=== PATIENT | male | born 1935 | race Two or more races ===

== ENCOUNTER 2017-08-29 06:32 | Emergency (ER) | payer OTHER ==
[~2017-08-29] VITALS: Ht 167.6 cm; Wt 66.7 kg
[2017-08-29 06:35] VITALS: Ht 167.6 cm; Wt 66.7 kg
[2017-08-29 08:10] VITALS: BP 142/82
== END 2017-08-29 08:10 | disposition home or self-care (01) ==
LOC: ED 06:32
DX: S81.812A Laceration without foreign body, left lower leg, initial encounter (principal); W25.XXXA Contact with sharp glass, initial encounter; Y93.89 Activity, other specified; Y92.89 Other specified places as the place of occurrence of the external cause; Y99.8 Other external cause status
CPT/HCPCS: 90715